=== PATIENT | female | born 2000 | race Caucasian/White ===

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

== ENCOUNTER 2021-01-01 14:30 | Emergency (ER) | payer MEDICAID ==
[2021-01-01 14:56] VITALS: BP 122/76; PULSE 72
--- NOTE | 2021-01-01 15:08 | EDM.PDOCBH ---
ED HPI GENERAL MEDICAL PROBLEM - General Chief Complaint: Behavioral/Psych Stated Complaint: ANXIETY Time Seen by Provider: 01/01/21 14:48 Source of Information: Reports: Patient History Limitations: Reports: No Limitations - History of Present Illness INITIAL COMMENTS - FREE TEXT/NARRATIVE: The patient presents with anxiety. She takes xanax 0.5mg BID for anxiety and she ran out this morning. She cannot get in to see her provider until Sunday. She has some anxiety now and she needs the meds to work. She ran out because she got sick and was vomiting them out. Onset: Gradual Duration: Hour(s): Severity: Moderate Improves with: Reports: None Worsens with: Reports: None Associated Symptoms: Reports: No Other Symptoms Back Pain Score (Numeric/FACES): 5 Headache Pain Score (Numeric/FACES): 3 - Related Data Allergies Allergy/AdvReac Type Severity Reaction Status Date / Time amoxicillin Allergy Severe Rash Verified 01/01/21 14:47 nylon Allergy Severe Hives Verified 01/01/21 14:47 Penicillins Allergy Severe Rash Verified 01/01/21 14:47 Home Meds: Home Meds Venlafaxine HCl [Venlafaxine ER] 150 mg PO DAILY 11/23/18 [History] ALPRAZolam [Xanax] 0.5 mg PO BID 01/01/21 [History] ALPRAZolam [Xanax] 0.5 mg PO BID #20 tablet 01/01/21 [Rx] Amphetamine/Dextroamphetamine [Adderall] 20 mg PO BID 01/01/21 [History] busPIRone [Buspar] 0 mg PO DAILY 01/01/21 [History] Past Medical History - Past Health History Medical/Surgical History: Denies Medical/Surgical History Respiratory History: Reports: Bronchitis, Recurrent Gastrointestinal History: Reports: Other (See Below) 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: , Other (See Below) 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: Psychiatric History: Reports: ADD, Anxiety, Depression, Suicide Attempt Other Psychiatric History: cuttiing self - Past Surgical History Female Surgical History: Reports: Section Social & Family History - Family History Family Medical History: No Pertinent Family History - Tobacco Use Tobacco Use Status *Q: Current Every Day Tobacco User Years of Tobacco use: 7 Packs/Tins Daily: 1 - Caffeine Use Caffeine Use: Reports: Soda, Tea - Recreational Drug Use Recreational Drug Type: Reports: Marijuana/Hashish - Living Situation & Occupation Living situation: Reports: Single Occupation: Unemployed ED ROS GENERAL - Review of Systems Review Of Systems: See Below Constitutional: Reports: No Symptoms HEENT: Reports: No Symptoms Respiratory: Reports: No Symptoms Cardiovascular: Reports: No Symptoms Endocrine: Reports: No Symptoms GI/Abdominal: Reports: No Symptoms : Reports: No Symptoms Musculoskeletal: Reports: No Symptoms ED EXAM, BEHAVIORAL HEALTH - Physical Exam Exam: See Below Exam Limited By: No Limitations General Appearance: Alert, No Apparent Distress Ears: Normal External Exam Nose: Normal Inspection Head: Atraumatic, Normocephalic Neck: Normal Inspection Respiratory/Chest: No Respiratory Distress, Lungs Clear, Normal Breath Sounds Cardiovascular: Regular Rate, Rhythm, No Edema, No Murmur GI/Abdominal: Soft, Non-Tender, No Organomegaly, No Mass Extremities: Normal Inspection Neurological: Alert, No Motor/Sensory Deficits, Oriented x 3 COURSE, BEHAVIORAL HEALTH COMP - Course Vital Signs: Last Vital Signs Temp 97.8 F 01/01/21 14:54 Pulse 72 01/01/21 14:54 Resp 20 01/01/21 14:54 BP 122/76 01/01/21 14:54 Pulse Ox 98 01/01/21 14:54 Departure - Departure Time of Disposition: 15:05 Disposition: Home, Self-Care 01 Condition: Good Clinical Impression: Anxiety - Discharge Information *PRESCRIPTION DRUG MONITORING PROGRAM REVIEWED*: Not Applicable *COPY OF PRESCRIPTION DRUG MONITORING REPORT IN PATIENT RAQUEL: Not Applicable Prescriptions: ALPRAZolam [Xanax] 0.5 mg PO BID #20 tablet Referrals: Isaías Duarte NP [Primary Care Provider] - 1 Week Additional Instructions: Take xanax 0.5mg 2 times per day as prescribed. Follow up with your provider to get a refill. Pleaser return if you are worse. Sepsis Event Note (ED) - Evaluation Sepsis Screening Result: No Definite Risk - Focused Exam Vital Signs: Vital Signs Temp Pulse Resp BP Pulse Ox 01/01/21 14:54 97.8 F 72 20 122/76 98
== END 2021-01-01 15:36 | disposition home or self-care (01) ==
LOC: JD.ED 14:30
DX: F41.9 Anxiety disorder, unspecified (principal); Z72.0 Tobacco use; Z88.0 Allergy status to penicillin; Z91.048 Other nonmedicinal substance allergy status; Z79.899 Other long term (current) drug therapy
CPT/HCPCS: 99283

== ENCOUNTER 2021-06-06 16:17 | Emergency (ER) | payer MEDICAID ==
[2021-06-06 16:58] VITALS: BP 139/117; PULSE 149
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
--- NOTE | 2021-06-06 18:18 | CT ---
Head CT Technique: Multiple axial sections through the brain were obtained. Intravenous contrast was not utilized. Reconstructed coronal and sagittal images were obtained. Comparison: No prior head CT study is available. Findings: Ventricles along with basal cisterns and sulci of the convexities are within normal limits for the patient's age. No abnormal parenchymal densities are seen. No evidence of intracranial hemorrhage is seen. No midline shift or mass-effect is seen. Bone window settings were reviewed. Mucosal thickening is seen within the sphenoid sinuses, maxillary sinuses and ethmoid sinuses. Possible fluid is seen within the maxillary sinuses. Mucosal thickening is also noted within the frontal sinuses. Mastoid sinuses are clear. No acute calvarial abnormality is appreciated. Impression: 1. Sinus findings. Please rule out clinical findings of acute sinusitis as air-fluid levels appear to be present within the maxillary sinuses. 2. No acute intracranial abnormality is appreciated. Diagnostic code #3
== END 2021-06-06 18:12 | disposition left against medical advice (07) ==
LOC: JD.ED 16:17
DX: S06.0X1A Concussion with loss of consciousness of 30 minutes or less, initial encounter (principal); Z88.0 Allergy status to penicillin; Z88.8 Allergy status to other drugs, medicaments and biological substances; Z72.0 Tobacco use; Y04.0XXA Assault by unarmed brawl or fight, initial encounter
CPT/HCPCS: 70450; 70450-26; 99283; 99284-25

== ENCOUNTER 2021-12-20 14:27 | Emergency (ER) | payer MEDICAID ==
[2021-12-20 15:29] VITALS: BP 116/82; PULSE 83
[2021-12-20] MEDS ORDERED: Ondansetron 4 MG/2 ML SDV IVPUSH ONE (16:44)
[2021-12-20] MEDS ORDERED: Sodium Chloride 0.9% 1,000 ML IV ONE (16:44)
[2021-12-20] MEDS ORDERED: Sodium Chloride 0.9% 10 ML Syringe FLUSH PRN (16:45)
[2021-12-20] MEDS ORDERED: HYDROmorphone 0.5 MG/0.5 ML Syringe IVPUSH ONE (17:07)
== END 2021-12-20 18:56 | disposition home or self-care (01) ==
LOC: JD.ED 14:27
DX: O21.9 Vomiting of pregnancy, unspecified (principal); U07.1 COVID-19; Z3A.10 10 weeks gestation of pregnancy; Z88.0 Allergy status to penicillin; Z91.09 Other allergy status, other than to drugs and biological substances; Z79.899 Other long term (current) drug therapy; Z86.16 Personal history of COVID-19
CPT/HCPCS: 36415; 80053; 83735; 85025; 96361; 96374; 96375; 99284; J1170; J2405; J3490; J7030; 99283

== ENCOUNTER 2022-07-11 05:09 | Inpatient (IN) | payer BC, MEDICAID ==
[~2022-07-11 05:09] MED LIST: Sodium Chloride 0.9% 10 ML Syringe FLUSH PRN
[2022-07-11] MEDS ORDERED: Metoclopramide 10 MG/2 ML SDV IVPUSH ONE (06:45)
[2022-07-11] MEDS ORDERED: Citric Acid/Sodium Citrate Solution 30 ML Cup PO ONE (06:45)
[2022-07-11] MEDS: Lactated Ringers 1,000 ML IV SCH ×2 (06:54→06:55)
[2022-07-11] MEDS ORDERED: Ondansetron 4 MG/2 ML SDV ONE (07:04)
[2022-07-11] MEDS ORDERED: Ketorolac 30 MG/ML SDV ONE (07:04)
[2022-07-11] MEDS ORDERED: Lactated Ringers 2,000 ML ONE (07:04)
[2022-07-11] MEDS ORDERED: Morphine PF 1 MG/ML Amp ONE (07:05)
[2022-07-11] MEDS ORDERED: ceFAZolin 2 GM Vial ONE (07:07)
[2022-07-11] MEDS ORDERED: Bupivacaine 0.5% 30 ML SDV ONE (07:13)
[2022-07-11] MEDS ORDERED: Oxytocin/Lactated Ringers 10 UNIT/1,000 ML BAG IV SCH (07:30)
[2022-07-11] MEDS ORDERED: ceFAZolin 2 GM in Sodium Chloride 0.9% 50 ML IV ONE (07:30)
[2022-07-11] MEDS ORDERED: Oxytocin 10 Units/1 ML SDV ONE (07:51)
[2022-07-11] MEDS ORDERED: Phenylephrine HCl In 0.9% NaCl 1 MG/10 ML Vial ONE (07:54)
[2022-07-11] MEDS ORDERED: fentaNYL 100 MCG/2 ML SDV IVPUSH PRN (08:15)
[2022-07-11] MEDS ORDERED: Meperidine 50 MG/ML Vial IVPUSH PRN (08:15)
[2022-07-11] MEDS ORDERED: diphenhydrAMINE 50 MG/ML SDV IVPUSH PRN (08:15)
[2022-07-11] MEDS ORDERED: Ondansetron 4 MG/2 ML SDV IVPUSH PRN (08:15)
[2022-07-11] MEDS ORDERED: Sodium Chloride 0.9% 10 ML Syringe FLUSH SCH (09:00)
[2022-07-11] MEDS ORDERED: Dextrose 5%-Lactated Ringers 1,000 ML IV SCH (09:41)
[2022-07-11] MEDS ORDERED: Acetaminophen/oxyCODONE 325-5 MG Tab PO PRN (09:41)
[2022-07-11] MEDS ORDERED: ePHEDrine 50 MG/ML SDV IVPUSH PRN (09:41)
[2022-07-11] MEDS ORDERED: Naloxone 0.4 MG/ML SDV IVPUSH PRN (09:41)
[2022-07-11] MEDS: diphenhydrAMINE 50 MG/ML SDV IVPUSH PRN ×2 (11:35→19:54)
[2022-07-11] MEDS: Acetaminophen/oxyCODONE 325-5 MG Tab PO PRN ×3 (12:19→23:33)
[2022-07-11] MEDS: Ketorolac 30 MG/ML SDV IVPUSH SCH ×2 (14:15→19:55)
[2022-07-12] MEDS: Acetaminophen/oxyCODONE 325-5 MG Tab PO PRN ×5 (04:51→21:00)
[2022-07-12] MEDS: Ketorolac 30 MG/ML SDV IVPUSH SCH (04:59)
[2022-07-12] MEDS: Docusate Sodium 100 MG Cap PO SCH ×2 (08:46→21:02)
[2022-07-12] MEDS: Ibuprofen 600 MG Tab PO PRN ×2 (13:43→18:58)
[2022-07-13] MEDS: Acetaminophen/oxyCODONE 325-5 MG Tab PO PRN ×3 (03:05→11:29)
[2022-07-13] MEDS: Ibuprofen 600 MG Tab PO PRN ×2 (03:06→10:10)
[2022-07-13] MEDS: Docusate Sodium 100 MG Cap PO SCH (10:16)
[2022-07-13 10:33] VITALS: BP 126/73; PULSE 81
== END 2022-07-13 13:30 | disposition home or self-care (01) | DRG 540 ==
LOC: JD.OB 05:09
PROVIDERS: ADMIT Obstetrics & Gynecology; ATTEND Obstetrics & Gynecology
PROC: 10D00Z1 Extraction of Products of Conception, Low, Open Approach (ICD-10-PCS; principal; 2022-07-11)
PROC: 4A1HXCZ Monitoring of Products of Conception, Cardiac Rate, External Approach (ICD-10-PCS; 2022-07-11)
DX: O34.211 Maternal care for low transverse scar from previous cesarean delivery (principal); O99.344 Other mental disorders complicating childbirth; F41.9 Anxiety disorder, unspecified; F32.A Depression, unspecified; Z3A.38 38 weeks gestation of pregnancy; Z37.0 Single live birth; Z88.1 Allergy status to other antibiotic agents
CPT/HCPCS: 36415; 59025; 80053; 80306; 85025; 86592; 86850; 86900; 86901; A9270-GY; J0690; J1200; J1885; J2274; J2405; J2590; J2765; J3490; J7120; J7121

== ENCOUNTER 2022-10-27 17:11 | Emergency (ER) | payer MEDICAID ==
[2022-10-27 17:30] VITALS: BP 125/83; PULSE 99
[2022-10-27] MEDS ORDERED: Acetaminophen/oxyCODONE 325-5 MG Tab PO ONE (18:05)
== END 2022-10-27 18:59 | disposition home or self-care (01) ==
LOC: JD.ED 17:11
DX: M54.42 Lumbago with sciatica, left side (principal); M54.41 Lumbago with sciatica, right side; I10 Essential (primary) hypertension; F17.210 Nicotine dependence, cigarettes, uncomplicated; Z88.0 Allergy status to penicillin; Z91.048 Other nonmedicinal substance allergy status; Z79.899 Other long term (current) drug therapy; Z91.040 Latex allergy status; Z86.16 Personal history of COVID-19
CPT/HCPCS: 99283; A9270

== ENCOUNTER 2022-11-02 17:55 | Emergency (ER) | payer MEDICAID ==
[2022-11-02] MEDS: predniSONE 20 MG Tab PO ONE (19:21)
[2022-11-02] MEDS: Ketorolac 60 MG/2 ML SDV IM ONE (19:22)
[2022-11-02] MEDS: HYDROmorphone 1 MG/ML Syringe IM ONE (19:24)
[2022-11-02 19:39] VITALS: BP 108/73; PULSE 73
== END 2022-11-02 19:41 | disposition home or self-care (01) ==
LOC: JD.ED 17:55
DX: M54.50 Low back pain, unspecified (principal); I10 Essential (primary) hypertension; K21.9 Gastro-esophageal reflux disease without esophagitis; F17.210 Nicotine dependence, cigarettes, uncomplicated; Z86.16 Personal history of COVID-19; Z91.040 Latex allergy status; Z91.048 Other nonmedicinal substance allergy status; Z88.0 Allergy status to penicillin; Z79.899 Other long term (current) drug therapy
CPT/HCPCS: 96372; 99283; J1170; J1885; J7512

== ENCOUNTER 2023-01-24 14:03 | Emergency (ER) | payer MEDICAID ==
[2023-01-24 14:30] VITALS: BP 119/76
[2023-01-24] MEDS ORDERED: Acetaminophen/HYDROcodone 325-5 MG Tab PO ONE (15:05)
[2023-01-24 16:50] VITALS: PULSE 74
== END 2023-01-24 15:55 | disposition home or self-care (01) ==
LOC: JD.ED 14:03
DX: M54.50 Low back pain, unspecified (principal); I10 Essential (primary) hypertension; K21.9 Gastro-esophageal reflux disease without esophagitis; Z86.16 Personal history of COVID-19; Z88.0 Allergy status to penicillin; Z91.040 Latex allergy status; Z91.048 Other nonmedicinal substance allergy status; Z88.8 Allergy status to other drugs, medicaments and biological substances
CPT/HCPCS: 99283; A9270

== ENCOUNTER 2023-03-13 16:29 | Emergency (ER) | payer MEDICAID ==
[2023-03-13] MEDS ORDERED: LORazepam 1 MG Tab PO ONE (16:48)
[2023-03-13] MEDS ORDERED: Ondansetron 4 MG Tab.DIS PO ONE (17:04)
[2023-03-13 18:42] VITALS: BP 136/88; PULSE 93
== END 2023-03-13 18:45 | disposition home or self-care (01) ==
LOC: JD.ED 16:29
DX: F41.9 Anxiety disorder, unspecified (principal); I10 Essential (primary) hypertension; K21.9 Gastro-esophageal reflux disease without esophagitis; Z86.16 Personal history of COVID-19; Z79.899 Other long term (current) drug therapy; Z88.0 Allergy status to penicillin; Z91.040 Latex allergy status; Z91.048 Other nonmedicinal substance allergy status
CPT/HCPCS: 99283; A9270

== ENCOUNTER 2023-04-22 21:08 | Emergency (ER) | payer MEDICAID ==
[2023-04-22] MEDS ORDERED: Albuterol 6.7 GM Inhaler INH ONE (21:41)
[2023-04-22] MEDS ORDERED: predniSONE 20 MG Tab PO ONE (22:10)
[2023-04-22] MEDS ORDERED: Dextromethorphan HBr 30 MG/5 ML Susp ML PO ONE (22:11)
[2023-04-22 22:36] LABS: CORONAVIRUS COVID-19 NAA NEGATIVE (NEGATIVE); INFLUENZA A NAA NEGATIVE (NEGATIVE); RESPIRATORY SYNCYTIAL VIR NAA NEGATIVE (NEGATIVE)
[2023-04-22] MEDS ORDERED: guaiFENesin 100 MG/5 ML Soln 10 ML UD Cup ONE (22:41)
[2023-04-22] MEDS ORDERED: guaiFENesin/Dextromethorphan 100-10 MG/5 ML Soln 5 ML Cup PO ONE (22:42)
[2023-04-22 22:58] VITALS: BP 118/76; PULSE 78
== END 2023-04-22 22:45 | disposition home or self-care (01) ==
LOC: JD.ED 21:08
DX: J06.9 Acute upper respiratory infection, unspecified (principal); F17.210 Nicotine dependence, cigarettes, uncomplicated; Z20.822 Contact with and (suspected) exposure to COVID-19; Z86.16 Personal history of COVID-19; Z79.899 Other long term (current) drug therapy; Z88.1 Allergy status to other antibiotic agents; Z88.8 Allergy status to other drugs, medicaments and biological substances; Z91.040 Latex allergy status; Z91.048 Other nonmedicinal substance allergy status
CPT/HCPCS: 0241U; 71046; 94640; 99285; A9270; J7512; 99284

== ENCOUNTER 2023-10-04 04:27 | Inpatient (IN) | payer MEDICAID ==
[2023-10-04] MEDS: Lactated Ringers 1,000 ML IV SCH (05:10)
[2023-10-04 05:34] LABS: BASOPHILS ABSOLUTE AUTO 0.1 K/mm3 (0.0-0.2); BASOPHILS PERCENT AUTO 0.5 % (0.0-1.0); EOSINOPHILS ABSOLUTE AUTO 0.1 K/mm3 (0.0-0.4); EOSINOPHILS PERCENT AUTO 1.3 % (0.0-6.0); HEMOGLOBIN 10.9 gm/dl (12.0-16.0); IMMATURE GRAN ABSOLUTE AUTO 0.15 K/mm3 (0.00-0.05); IMMATURE GRAN PERCENT AUTO 1.6 % (0.0-0.4); LYMPHOCYTES ABSOLUTE AUTO 2.4 K/mm3 (1.0-4.8); LYMPHOCYTES PERCENT AUTO 25.7 % (24.0-44.0); MEAN CORPUSCULAR HEMOGLOBIN 26.4 pg (28.0-32.0); MEAN CORPUSCULAR HGB CONC 32.1 g/dl (32.0-36.0); MEAN CORPUSCULAR VOLUME 82.3 fl (83.0-99.0); MEAN PLATELET VOLUME 10.5 fl (9.4-12.3); MONOCYTES ABSOLUTE AUTO 0.8 K/mm3 (0.0-0.8); MONOCYTES PERCENT AUTO 8.2 % (0.0-8.0); NEUTROPHILS ABSOLUTE AUTO 5.9 K/mm3 (1.8-7.7); NEUTROPHILS PERCENT AUTO 62.7 % (41.0-71.0); PLATELET COUNT,PLT 176 K/mm3 (150-400); RED BLOOD CELL COUNT 4.13 M/mm3 (4.10-5.30)
[2023-10-04] MEDS ORDERED: ceFAZolin 2 GM Vial ONE (07:12)
[2023-10-04] MEDS ORDERED: Ondansetron 4 MG/2 ML SDV ONE (07:12)
[2023-10-04] MEDS ORDERED: Ketorolac 30 MG/ML SDV ONE (07:12)
[2023-10-04] MEDS ORDERED: Oxytocin 10 Units/1 ML SDV ONE (07:12)
[2023-10-04] MEDS ORDERED: Morphine PF 10 MG/10 ML SDV ONE (07:13)
[2023-10-04] MEDS: Citric Acid/Sodium Citrate Solution 30 ML Cup PO ONE (07:21)
[2023-10-04] MEDS: Metoclopramide 10 MG/2 ML SDV IVPUSH ONE (07:21)
[2023-10-04] MEDS ORDERED: ePHEDrine 50 MG/ML SDV ONE (08:00)
[2023-10-04] MEDS ORDERED: diphenhydrAMINE 50 MG/ML SDV ONE (08:14)
[2023-10-04] MEDS ORDERED: Esmolol 100 MG/10 ML SDV ONE (08:14)
[2023-10-04] MEDS ORDERED: Lactated Ringers 500 ML ONE (08:29)
[2023-10-04] MEDS ORDERED: Acetaminophen/oxyCODONE 325-5 MG Tab PO PRN (08:37)
[2023-10-04] MEDS ORDERED: Acetaminophen 325 MG Tab PO PRN (08:37)
[2023-10-04] MEDS ORDERED: Naloxone 0.4 MG/ML SDV IVPUSH PRN (08:37)
[2023-10-04] MEDS ORDERED: ePHEDrine 50 MG/ML SDV IVPUSH PRN (08:37)
[2023-10-04] MEDS ORDERED: fentaNYL 100 MCG/2 ML SDV IVPUSH PRN (08:42)
[2023-10-04] MEDS ORDERED: diphenhydrAMINE 50 MG/ML SDV IVPUSH PRN ×2 (08:42→10:00)
[2023-10-04 09:00] LABS: AMPHETAMINES SCREEN, URINE NEGATIVE (CUTOFF=500); BARBITURATE SCREEN,URINE NEGATIVE (CUTOFF=200); BENZODIAZEPINES SCREEN,URINE NEGATIVE (CUTOFF=150); BUPRENORPHINE SCREEN,URINE NEGATIVE (CUTOFF=10); METHADONE SCREEN, URINE NEGATIVE (CUTOFF=200); METHAMPHETAMINES SCREEN, URINE NEGATIVE (CUTOFF=500); OXYCODONE SCREEN,URINE NEGATIVE (CUT0FF=100); THC SCREEN,URINE 20 NG/ML PRESUMPTIVE POSITIVE (CUTOFF=50)
[2023-10-04] MEDS: Bupivacaine 0.5% 30 ML SDV ONE (09:20)
[2023-10-04] MEDS: ceFAZolin 2 GM in Sodium Chloride 0.9% 50 ML IV ONE ×2 (09:44)
[2023-10-04] MEDS: Sodium Chloride 0.9% 10 ML Syringe FLUSH SCH (09:45)
[2023-10-04] MEDS: Dextrose 5%-Lactated Ringers 1,000 ML IV SCH (09:49)
[2023-10-04] MEDS: Acetaminophen/oxyCODONE 325-5 MG Tab PO PRN (09:51)
[2023-10-04] MEDS: Oxytocin/Lactated Ringers 30 UNIT/500 ML BAG IV SCH (10:44)
[2023-10-04] MEDS: Methylergonovine 0.2 MG/1 ML Amp IM ONE (10:55)
[2023-10-04] MEDS: Methylergonovine 0.2 MG/1 ML Amp ONE (10:55)
[2023-10-04 12:38] LABS: BASOPHILS PERCENT AUTO 0.2 % (0.0-1.0); EOSINOPHILS PERCENT AUTO 0.2 % (0.0-6.0); HEMATOCRIT 29.6 % (37.0-47.0); HEMOGLOBIN 9.6 gm/dl (12.0-16.0); IMMATURE GRAN ABSOLUTE AUTO 0.15 K/mm3 (0.00-0.05); IMMATURE GRAN PERCENT AUTO 0.9 % (0.0-0.4); LYMPHOCYTES ABSOLUTE AUTO 1.7 K/mm3 (1.0-4.8); LYMPHOCYTES PERCENT AUTO 9.9 % (24.0-44.0); MEAN CORPUSCULAR HEMOGLOBIN 27.1 pg (28.0-32.0); MEAN CORPUSCULAR HGB CONC 32.4 g/dl (32.0-36.0); MEAN CORPUSCULAR VOLUME 83.6 fl (83.0-99.0); MEAN PLATELET VOLUME 10.5 fl (9.4-12.3); MONOCYTES ABSOLUTE AUTO 0.6 K/mm3 (0.0-0.8); MONOCYTES PERCENT AUTO 3.7 % (0.0-8.0); NEUTROPHILS ABSOLUTE AUTO 14.8 K/mm3 (1.8-7.7); NEUTROPHILS PERCENT AUTO 85.1 % (41.0-71.0); PLATELET COUNT,PLT 147 K/mm3 (150-400); RED BLOOD CELL COUNT 3.54 M/mm3 (4.10-5.30); WHITE BLOOD CELL COUNT,WBC 17.39 K/mm3 (3.9-11.3)
[2023-10-04 12:56] LABS: PROTHROMBIN TIME 10.7 SECONDS (9.7-12.0)
[2023-10-04 12:57] LABS: PTT,PARTIAL THROMBOPLSTIN TIME 27.3 SECONDS (21.7-31.4)
[2023-10-04] MEDS: Ketorolac 30 MG/ML SDV IVPUSH SCH (13:57)
[2023-10-04] MEDS: Ondansetron 4 MG/2 ML SDV IVPUSH PRN (20:21)
[2023-10-04] MEDS: Simethicone 80 MG Tab.Chew PO PRN (22:30)
[2023-10-05 06:08] LABS: BASOPHILS PERCENT AUTO 0.4 % (0.0-1.0); EOSINOPHILS ABSOLUTE AUTO 0.2 K/mm3 (0.0-0.4); EOSINOPHILS PERCENT AUTO 1.4 % (0.0-6.0); HEMATOCRIT 20.7 % (37.0-47.0); IMMATURE GRAN ABSOLUTE AUTO 0.18 K/mm3 (0.00-0.05); IMMATURE GRAN PERCENT AUTO 1.6 % (0.0-0.4); LYMPHOCYTES ABSOLUTE AUTO 2.4 K/mm3 (1.0-4.8); LYMPHOCYTES PERCENT AUTO 21.9 % (24.0-44.0); MEAN CORPUSCULAR HEMOGLOBIN 27.3 pg (28.0-32.0); MEAN CORPUSCULAR HGB CONC 32.4 g/dl (32.0-36.0); MEAN CORPUSCULAR VOLUME 84.5 fl (83.0-99.0); MEAN PLATELET VOLUME 10.2 fl (9.4-12.3); NEUTROPHILS ABSOLUTE AUTO 7.2 K/mm3 (1.8-7.7); NEUTROPHILS PERCENT AUTO 65.7 % (41.0-71.0); PLATELET COUNT,PLT 159 K/mm3 (150-400); RED BLOOD CELL COUNT 2.45 M/mm3 (4.10-5.30); WHITE BLOOD CELL COUNT,WBC 11.01 K/mm3 (3.9-11.3)
[2023-10-05 06:13] LABS: HEMOGLOBIN 6.7 gm/dl (12.0-16.0)
[2023-10-05] MEDS: Ibuprofen 600 MG Tab PO PRN (08:50)
[2023-10-05] MEDS: Sodium Chloride 0.9% 1,000 ML IV SCH (10:00)
[2023-10-05] MEDS: Docusate Sodium 100 MG Cap PO PRN (11:42)
[2023-10-05] MEDS: diphenhydrAMINE 50 MG/ML SDV IV ONE (13:56)
[2023-10-05] MEDS: Acetaminophen 325 MG Tab PO ONE (13:56)
[2023-10-05 18:06] LABS: BASOPHILS ABSOLUTE AUTO 0.1 K/mm3 (0.0-0.2); BASOPHILS PERCENT AUTO 0.4 % (0.0-1.0); EOSINOPHILS ABSOLUTE AUTO 0.2 K/mm3 (0.0-0.4); EOSINOPHILS PERCENT AUTO 1.9 % (0.0-6.0); HEMATOCRIT 27.9 % (37.0-47.0); HEMOGLOBIN 9.2 gm/dl (12.0-16.0); IMMATURE GRAN ABSOLUTE AUTO 0.16 K/mm3 (0.00-0.05); IMMATURE GRAN PERCENT AUTO 1.4 % (0.0-0.4); LYMPHOCYTES ABSOLUTE AUTO 2.7 K/mm3 (1.0-4.8); LYMPHOCYTES PERCENT AUTO 23.3 % (24.0-44.0); MEAN CORPUSCULAR VOLUME 84.8 fl (83.0-99.0); MEAN PLATELET VOLUME 10.1 fl (9.4-12.3); MONOCYTES ABSOLUTE AUTO 1.1 K/mm3 (0.0-0.8); MONOCYTES PERCENT AUTO 9.5 % (0.0-8.0); NEUTROPHILS ABSOLUTE AUTO 7.2 K/mm3 (1.8-7.7); NEUTROPHILS PERCENT AUTO 63.5 % (41.0-71.0); PLATELET COUNT,PLT 179 K/mm3 (150-400); RED BLOOD CELL COUNT 3.29 M/mm3 (4.10-5.30); WHITE BLOOD CELL COUNT,WBC 11.35 K/mm3 (3.9-11.3)
[2023-10-06 09:46] VITALS: PULSE 85
[2023-10-06 16:56] VITALS: BP 138/84
== END 2023-10-06 16:30 | disposition home or self-care (01) | DRG 787 ==
LOC: JD.OB 04:27
PROVIDERS: ADMIT Obstetrics & Gynecology; ATTEND Obstetrics & Gynecology
PROC: 10D00Z1 Extraction of Products of Conception, Low, Open Approach (ICD-10-PCS; principal; 2023-10-04 08:00)
PROC: 30233N1 Transfusion of Nonautologous Red Blood Cells into Peripheral Vein, Percutaneous Approach (ICD-10-PCS; 2023-10-05)
DX: O34.211 Maternal care for low transverse scar from previous cesarean delivery (principal); D62 Acute posthemorrhagic anemia; Z37.0 Single live birth; Z3A.39 39 weeks gestation of pregnancy; O99.344 Other mental disorders complicating childbirth; F32.A Depression, unspecified; F41.9 Anxiety disorder, unspecified; O90.81 Anemia of the puerperium
CPT/HCPCS: 01961; 36415; 36430; 59025; 80306; 85025; 85384; 85610; 85730; 86592; 86850; 86900; 86901; 86922; 94762; A9270-GY; J0665; J0690; J1200; J1885; J2210; J2274; J2405; J2590; J2765; J3490; J7030; J7120; J7121; J7999; P9016

== ENCOUNTER 2023-10-14 02:42 | Day surgery (SDC) | payer MEDICAID ==
[2023-10-14] MEDS ORDERED: Naloxone 0.4 MG/ML SDV IVPUSH PRN ×2 (03:10→04:49)
[2023-10-14] MEDS: Sodium Chloride 0.9% 1,000 ML IV ONE (03:24)
[2023-10-14] MEDS: Ondansetron 4 MG/2 ML SDV IVPUSH ONE (03:25)
[2023-10-14] MEDS: Morphine 4 MG/ML Syringe IVPUSH ONE (03:26)
[2023-10-14] MEDS: Sodium Chloride 0.9% 10 ML Syringe FLUSH PRN ×2 (03:28→04:13)
[2023-10-14 03:37] LABS: BASOPHILS ABSOLUTE AUTO 0.1 K/mm3 (0.0-0.2); BASOPHILS PERCENT AUTO 0.6 % (0.0-1.0); EOSINOPHILS ABSOLUTE AUTO 0.2 K/mm3 (0.0-0.4); EOSINOPHILS PERCENT AUTO 2.1 % (0.0-6.0); HEMATOCRIT 29.2 % (37.0-47.0); HEMOGLOBIN 9.5 gm/dl (12.0-16.0); IMMATURE GRAN ABSOLUTE AUTO 0.64 K/mm3 (0.00-0.05); IMMATURE GRAN PERCENT AUTO 5.8 % (0.0-0.4); LYMPHOCYTES ABSOLUTE AUTO 2.6 K/mm3 (1.0-4.8); LYMPHOCYTES PERCENT AUTO 23.9 % (24.0-44.0); MEAN CORPUSCULAR HEMOGLOBIN 27.6 pg (28.0-32.0); MEAN CORPUSCULAR HGB CONC 32.5 g/dl (32.0-36.0); MEAN CORPUSCULAR VOLUME 84.9 fl (83.0-99.0); MONOCYTES ABSOLUTE AUTO 0.8 K/mm3 (0.0-0.8); MONOCYTES PERCENT AUTO 6.9 % (0.0-8.0); NEUTROPHILS ABSOLUTE AUTO 6.7 K/mm3 (1.8-7.7); NEUTROPHILS PERCENT AUTO 60.7 % (41.0-71.0); NRBC ABSOLUTE 0.02 (0.00-0.02); NRBC PERCENT 0.2 % (0.0-0.2); PLATELET COUNT,PLT 557 K/mm3 (150-400); RED BLOOD CELL COUNT 3.44 M/mm3 (4.10-5.30); WHITE BLOOD CELL COUNT,WBC 11.05 K/mm3 (3.9-11.3)
[2023-10-14 03:53] LABS: APPEARANCE,URINE CLEAR (Clear); BILIRUBIN,URINE NEGATIVE (Negative); COLOR,URINE PINK (Yellow); GLUCOSE,URINE NEGATIVE (Negative); KETONES,URINE TRACE (Negative); LEUKOCYTE ESTERASE,URINE 1+ (Negative); NITRITE,URINE NEGATIVE (Negative); OCCULT BLOOD,URINE 3+ (Negative); PH,URINE 5.5 (5.0-8.0); PROTEIN,URINE 2+ (Negative); UROBILINOGEN,URINE 0.2 (0.2-1.0)
[2023-10-14 04:01] LABS: LACTIC ACID 1.7 mmol/L (0.4-2.0); SLIDE REVIEW ABNORMAL SMEAR
[2023-10-14 04:06] LABS: BACTERIA,URINE MODERATE /hpf (FEW); RBC,URINE TOO NUMEROUS TO CNT /hpf (0-5); SQUAMOUS EPITHELIAL CELLS,UR 0-5 /hpf (0-5); WBC,URINE 30-40 /hpf (0-5)
[2023-10-14 04:07] LABS: MUCUS,URINE NOT SEEN /hpf (FEW)
[2023-10-14 04:08] LABS: A/G RATIO 0.6 (1-2); ALBUMIN 2.3 g/dl (3.4-5.0); ANION GAP 19.8 (5-15); BILIRUBIN TOTAL 0.3 mg/dL (0.2-1.0); BUN/CREATININE RATIO 21.4 (14-18); CREATININE 0.7 mg/dL (0.55-1.02); EST CRCL DRUG DOSING (CG) 118.01 mL/min; PROTEIN TOTAL,TP 6.1 g/dl (6.4-8.2)
[2023-10-14 04:09] LABS: POTASSIUM,K 3.8 mEq/L (3.5-5.1)
[2023-10-14] MEDS: Iopamidol 612 MG/ML 100 ML Bottle IVPUSH ONE (04:12)
[2023-10-14] MEDS: HYDROmorphone 0.5 MG/0.5 ML Syringe IVPUSH ONE (04:58)
[2023-10-14] MEDS: D5 1/2 NS w/ 20 mEq/L KCl 1,000 ML IV SCH (04:58)
[2023-10-14] MEDS: Levofloxacin/Dextrose 5%-Water 750 MG in Premix Bag 1 BAG IV ONE (05:11)
[2023-10-14] MEDS: Lactated Ringers 1,000 ML IV SCH (06:27)
[2023-10-14] MEDS ORDERED: Propofol 200 MG/20 ML SDV ONE (07:21)
[2023-10-14] MEDS ORDERED: fentaNYL 250 MCG/5 ML SDV ONE (07:22)
[2023-10-14] MEDS ORDERED: Midazolam 1 MG/ML 2 ML SDV ONE (07:22)
[2023-10-14] MEDS ORDERED: Dexamethasone 4 MG/ML 5 ML MDV ONE (07:23)
[2023-10-14] MEDS ORDERED: Succinylcholine 200 MG/10 ML MDV ONE (07:23)
[2023-10-14] MEDS ORDERED: Ondansetron 4 MG/2 ML SDV ONE (07:23)
[2023-10-14] MEDS ORDERED: ceFAZolin 2 GM Vial ONE (07:59)
[2023-10-14] MEDS: Doxycycline Monohydrate 100 MG Cap PO ONE (08:05)
[2023-10-14] MEDS ORDERED: fentaNYL 100 MCG/2 ML SDV IVPUSH PRN (08:50)
[2023-10-14] MEDS ORDERED: HYDROmorphone 0.5 MG/0.5 ML Syringe IVPUSH PRN (08:50)
[2023-10-14] MEDS ORDERED: Ondansetron 4 MG/2 ML SDV IVPUSH PRN (08:50)
[2023-10-14] MEDS ORDERED: Lactated Ringers 1,000 ML IV ONE (09:00)
[2023-10-14] MEDS ORDERED: Methylergonovine 0.2 MG/1 ML Amp ONE (09:43)
[2023-10-14] MEDS: Ketorolac 30 MG/ML SDV IVPUSH ONE (10:16)
[2023-10-14] MEDS: oxyCODONE 5 MG Tab PO PRN (10:19)
[2023-10-14 10:52] VITALS: BP 126/70; PULSE 60
== END 2023-10-14 11:04 | disposition home or self-care (01) ==
LOC: JD.ED 02:42 → JD.SDS 06:43
PROVIDERS: ATTEND Obstetrics & Gynecology
DX: N71.9 Inflammatory disease of uterus, unspecified (principal); I10 Essential (primary) hypertension; K21.9 Gastro-esophageal reflux disease without esophagitis; F32.A Depression, unspecified; F41.9 Anxiety disorder, unspecified; D50.0 Iron deficiency anemia secondary to blood loss (chronic); N85.7 Hematometra; Z87.891 Personal history of nicotine dependence; Z79.899 Other long term (current) drug therapy; Z88.0 Allergy status to penicillin
CPT/HCPCS: 36415; 58120; 74177; 80053; 81001; 81003; 83605; 84702; 85025; 86850; 86900; 86901; 87040; 87086; 96365; 96368; 96375; 99285; A9270; J0330; J0690; J1100; J1170; J1885; J1956; J2210; J2250; J2270; J2405; J2704; J3010; J3480; J3490; J7030; J7120; Q9967; 00940; 99284

== ENCOUNTER 2023-10-15 21:13 | Emergency (ER) | payer MEDICAID ==
[2023-10-15] MEDS: oxyCODONE 5 MG Tab PO ONE (21:51)
[2023-10-15 23:09] VITALS: BP 138/92; PULSE 86
== END 2023-10-15 22:26 | disposition home or self-care (01) ==
LOC: JD.ED 21:13
DX: N99.841 Postprocedural hematoma of a genitourinary system organ or structure following other procedure (principal); I10 Essential (primary) hypertension; Z88.0 Allergy status to penicillin; Z91.048 Other nonmedicinal substance allergy status; Z91.040 Latex allergy status; Z88.8 Allergy status to other drugs, medicaments and biological substances; Z79.899 Other long term (current) drug therapy; Z86.16 Personal history of COVID-19
CPT/HCPCS: 99283; A9270

== ENCOUNTER 2023-11-01 20:56 | Emergency (ER) | payer MEDICAID ==
[2023-11-01 21:11] VITALS: BP 152/112; PULSE 110
[2023-11-01 21:24] LABS: APPEARANCE,URINE CLEAR (Clear); BILIRUBIN,URINE NEGATIVE (Negative); COLOR,URINE YELLOW (Yellow); GLUCOSE,URINE NEGATIVE (Negative); KETONES,URINE NEGATIVE (Negative); LEUKOCYTE ESTERASE,URINE TRACE (Negative); NITRITE,URINE NEGATIVE (Negative); OCCULT BLOOD,URINE 2+ (Negative); PROTEIN,URINE NEGATIVE (Negative); UROBILINOGEN,URINE 0.2 (0.2-1.0)
[2023-11-01] MEDS ORDERED: Sodium Chloride 0.9% 10 ML Syringe FLUSH PRN (21:26)
[2023-11-01 21:35] LABS: BACTERIA,URINE FEW /hpf (FEW); MUCUS,URINE MODERATE /hpf (FEW); SQUAMOUS EPITHELIAL CELLS,UR 0-5 /hpf (0-5); WBC,URINE 0-5 /hpf (0-5)
[2023-11-01] MEDS: Sodium Chloride 0.9% 1,000 ML IV SCH (21:45)
[2023-11-01] MEDS: Sodium Chloride 0.9% 10 ML Syringe FLUSH ONE (22:04)
[2023-11-01] MEDS: Iopamidol 612 MG/ML 30 ML SDV IVPUSH ONE (22:04)
[2023-11-01 23:04] LABS: BASOPHILS ABSOLUTE AUTO 0.1 K/mm3 (0.0-0.2); EOSINOPHILS ABSOLUTE AUTO 0.2 K/mm3 (0.0-0.4); EOSINOPHILS PERCENT AUTO 2.5 % (0.0-6.0); HEMATOCRIT 35.9 % (37.0-47.0); HEMOGLOBIN 11.3 gm/dl (12.0-16.0); IMMATURE GRAN ABSOLUTE AUTO 0.02 K/mm3 (0.00-0.05); IMMATURE GRAN PERCENT AUTO 0.3 % (0.0-0.4); LYMPHOCYTES ABSOLUTE AUTO 2.6 K/mm3 (1.0-4.8); LYMPHOCYTES PERCENT AUTO 43.6 % (24.0-44.0); MEAN CORPUSCULAR HEMOGLOBIN 26.8 pg (28.0-32.0); MEAN CORPUSCULAR HGB CONC 31.5 g/dl (32.0-36.0); MEAN CORPUSCULAR VOLUME 85.3 fl (83.0-99.0); MEAN PLATELET VOLUME 9.4 fl (9.4-12.3); MONOCYTES ABSOLUTE AUTO 0.5 K/mm3 (0.0-0.8); MONOCYTES PERCENT AUTO 8.9 % (0.0-8.0); NEUTROPHILS ABSOLUTE AUTO 2.6 K/mm3 (1.8-7.7); NEUTROPHILS PERCENT AUTO 43.7 % (41.0-71.0); PLATELET COUNT,PLT 329 K/mm3 (150-400); RED BLOOD CELL COUNT 4.21 M/mm3 (4.10-5.30); WHITE BLOOD CELL COUNT,WBC 5.98 K/mm3 (3.9-11.3)
[2023-11-01] MEDS: cefTRIAXone 1 GM in Sodium Chloride 0.9% 100 ML IV ONE (23:09)
[2023-11-01 23:25] LABS: A/G RATIO 0.9 (1-2); ALBUMIN 3.4 g/dl (3.4-5.0); ANION GAP 14.8 (5-15); BILIRUBIN TOTAL 0.3 mg/dL (0.2-1.0); BUN/CREATININE RATIO 12.9 (14-18); CALCIUM 8.4 mg/dL (8.5-10.1); CREATININE 0.7 mg/dL (0.55-1.02); EST CRCL DRUG DOSING (CG) 118.01 mL/min; POTASSIUM,K 3.8 mEq/L (3.5-5.1)
[2023-11-01] MEDS: Acetaminophen/HYDROcodone 325-5 MG Tab PO ONE (23:30)
== END 2023-11-02 00:03 | disposition home or self-care (01) ==
LOC: JD.ED 20:56
DX: O86.22 Infection of bladder following delivery (principal); N30.01 Acute cystitis with hematuria; O86.89 Other specified puerperal infections; I10 Essential (primary) hypertension; Z88.0 Allergy status to penicillin; Z91.048 Other nonmedicinal substance allergy status; Z91.040 Latex allergy status; Z79.899 Other long term (current) drug therapy; Z86.16 Personal history of COVID-19
CPT/HCPCS: 36415; 74177; 74177-26; 80053; 81001; 81003; 85025; 86140; 87086; 96365; 99284; 99284-25; A9270-GY; J0696; J3490; J7030; Q9967

== ENCOUNTER 2023-11-04 14:47 | Emergency (ER) | payer MEDICAID ==
[2023-11-04 18:26] LABS: BASOPHILS ABSOLUTE AUTO 0.1 K/mm3 (0.0-0.2); BASOPHILS PERCENT AUTO 0.8 % (0.0-1.0); EOSINOPHILS ABSOLUTE AUTO 0.2 K/mm3 (0.0-0.4); EOSINOPHILS PERCENT AUTO 2.8 % (0.0-6.0); HEMATOCRIT 37.2 % (37.0-47.0); IMMATURE GRAN ABSOLUTE AUTO 0.01 K/mm3 (0.00-0.05); IMMATURE GRAN PERCENT AUTO 0.2 % (0.0-0.4); LYMPHOCYTES ABSOLUTE AUTO 2.7 K/mm3 (1.0-4.8); LYMPHOCYTES PERCENT AUTO 44.8 % (24.0-44.0); MEAN CORPUSCULAR HEMOGLOBIN 27.3 pg (28.0-32.0); MEAN CORPUSCULAR HGB CONC 32.3 g/dl (32.0-36.0); MEAN CORPUSCULAR VOLUME 84.5 fl (83.0-99.0); MEAN PLATELET VOLUME 9.1 fl (9.4-12.3); MONOCYTES ABSOLUTE AUTO 0.5 K/mm3 (0.0-0.8); MONOCYTES PERCENT AUTO 7.8 % (0.0-8.0); NEUTROPHILS ABSOLUTE AUTO 2.6 K/mm3 (1.8-7.7); NEUTROPHILS PERCENT AUTO 43.6 % (41.0-71.0); PLATELET COUNT,PLT 337 K/mm3 (150-400); WHITE BLOOD CELL COUNT,WBC 6.03 K/mm3 (3.9-11.3)
[2023-11-04 18:40] LABS: APPEARANCE,URINE CLEAR (Clear); BILIRUBIN,URINE NEGATIVE (Negative); COLOR,URINE YELLOW (Yellow); GLUCOSE,URINE NEGATIVE (Negative); KETONES,URINE NEGATIVE (Negative); LEUKOCYTE ESTERASE,URINE NEGATIVE (Negative); NITRITE,URINE NEGATIVE (Negative); OCCULT BLOOD,URINE NEGATIVE (Negative); PROTEIN,URINE NEGATIVE (Negative); UROBILINOGEN,URINE 0.2 (0.2-1.0)
[2023-11-04 18:49] LABS: ALBUMIN 3.8 g/dl (3.4-5.0); BILIRUBIN TOTAL 0.2 mg/dL (0.2-1.0); BUN/CREATININE RATIO 12.2 (14-18); CALCIUM 9.2 mg/dL (8.5-10.1); CREATININE 0.9 mg/dL (0.55-1.02); EST CRCL DRUG DOSING (CG) 91.79 mL/min; POTASSIUM,K 4.1 mEq/L (3.5-5.1); PROTEIN TOTAL,TP 7.5 g/dl (6.4-8.2)
[2023-11-04] MEDS: Sodium Chloride 0.9% 10 ML Syringe FLUSH ONE (19:02)
[2023-11-04] MEDS: Iopamidol 612 MG/ML 100 ML Bottle IVPUSH ONE (19:02)
[2023-11-04 19:26] LABS: ANION GAP 12.1 (5-15)
[2023-11-04] MEDS: Metoclopramide 10 MG/2 ML SDV IVPUSH ONE (19:28)
[2023-11-04 19:30] LABS: LACTIC ACID < 0.3 mmol/L (0.4-2.0)
[2023-11-04] MEDS: diphenhydrAMINE 50 MG/ML SDV IVPUSH ONE (19:30)
[2023-11-04] MEDS: Sodium Chloride 0.9% 1,000 ML IV SCH (19:35)
[2023-11-04 20:15] VITALS: BP 102/56; PULSE 62
== END 2023-11-04 20:12 | disposition home or self-care (01) ==
LOC: JD.ED 14:47
DX: S30.0XXA Contusion of lower back and pelvis, initial encounter (principal); Z39.2 Encounter for routine postpartum follow-up; I10 Essential (primary) hypertension; F17.210 Nicotine dependence, cigarettes, uncomplicated; Z88.0 Allergy status to penicillin; Z91.048 Other nonmedicinal substance allergy status; Z91.040 Latex allergy status; Z79.899 Other long term (current) drug therapy
CPT/HCPCS: 36415; 74177; 80053; 81003; 83605; 85025; 86140; 96361; 96374; 96375; 99284; J1200; J2765; J3490; J7030; Q9967

== ENCOUNTER 2023-11-23 20:13 | Emergency (ER) | payer MEDICAID ==
[2023-11-23] MEDS: Ketorolac 30 MG/ML SDV IM ONE (21:02)
[2023-11-23] MEDS: Acetaminophen 325 MG Tab PO ONE (23:30)
[2023-11-23 23:47] VITALS: BP 139/94; PULSE 88
== END 2023-11-23 23:45 | disposition home or self-care (01) ==
LOC: JD.ED 20:13
DX: N83.202 Unspecified ovarian cyst, left side (principal); I10 Essential (primary) hypertension; K21.9 Gastro-esophageal reflux disease without esophagitis; Z88.0 Allergy status to penicillin; Z91.048 Other nonmedicinal substance allergy status; Z91.040 Latex allergy status; Z79.899 Other long term (current) drug therapy
CPT/HCPCS: 76856; 96372; 99284; A9270; J1885

== ENCOUNTER 2024-01-06 10:58 | Emergency (ER) | payer MEDICAID ==
[2024-01-06] MEDS: LORazepam 1 MG Tab PO ONE (11:25)
[2024-01-06] MEDS ORDERED: hydrALAZINE 20 MG/ML SDV IVPUSH ONE (12:02)
[2024-01-06 12:20] LABS: BASOPHILS PERCENT AUTO 0.5 % (0.0-1.0); EOSINOPHILS PERCENT AUTO 0.7 % (0.0-6.0); HEMATOCRIT 40.2 % (37.0-47.0); HEMOGLOBIN 13.2 gm/dl (12.0-16.0); IMMATURE GRAN ABSOLUTE AUTO 0.01 K/mm3 (0.00-0.05); IMMATURE GRAN PERCENT AUTO 0.2 % (0.0-0.4); LYMPHOCYTES ABSOLUTE AUTO 1.3 K/mm3 (1.0-4.8); LYMPHOCYTES PERCENT AUTO 28.3 % (24.0-44.0); MEAN CORPUSCULAR HEMOGLOBIN 27.4 pg (28.0-32.0); MEAN CORPUSCULAR HGB CONC 32.8 g/dl (32.0-36.0); MEAN CORPUSCULAR VOLUME 83.6 fl (83.0-99.0); MEAN PLATELET VOLUME 9.5 fl (9.4-12.3); MONOCYTES ABSOLUTE AUTO 0.5 K/mm3 (0.0-0.8); MONOCYTES PERCENT AUTO 10.4 % (0.0-8.0); NEUTROPHILS ABSOLUTE AUTO 2.6 K/mm3 (1.8-7.7); NEUTROPHILS PERCENT AUTO 59.9 % (41.0-71.0); RED BLOOD CELL COUNT 4.81 M/mm3 (4.10-5.30); WHITE BLOOD CELL COUNT,WBC 4.41 K/mm3 (3.9-11.3)
[2024-01-06 12:21] LABS: PLATELET COUNT,PLT 259 K/mm3 (150-400)
[2024-01-06 12:47] LABS: A/G RATIO 1.2 (1-2); ALBUMIN 4.1 g/dl (3.4-5.0); ANION GAP 16.6 (5-15); BILIRUBIN TOTAL 0.3 mg/dL (0.2-1.0); BUN/CREATININE RATIO 6.3 (14-18); CALCIUM 9.2 mg/dL (8.5-10.1); CREATININE 0.8 mg/dL (0.55-1.02); EST CRCL DRUG DOSING (CG) 103.26 mL/min; MAGNESIUM 1.8 mg/dL (1.8-2.4); POTASSIUM,K 2.6 mEq/L (3.5-5.1); PROTEIN TOTAL,TP 7.6 g/dl (6.4-8.2)
[2024-01-06] MEDS: Potassium Chloride 20 MEQ Tab.ER PO ONE (13:06)
[2024-01-06 13:31] LABS: APPEARANCE,URINE CLEAR (Clear); BILIRUBIN,URINE NEGATIVE (Negative); COLOR,URINE YELLOW (Yellow); GLUCOSE,URINE NEGATIVE (Negative); KETONES,URINE NEGATIVE (Negative); LEUKOCYTE ESTERASE,URINE NEGATIVE (Negative); NITRITE,URINE NEGATIVE (Negative); OCCULT BLOOD,URINE NEGATIVE (Negative); PROTEIN,URINE NEGATIVE (Negative); UROBILINOGEN,URINE 0.2 (0.2-1.0)
[2024-01-06 14:04] VITALS: BP 131/85; PULSE 91
== END 2024-01-06 13:50 | disposition home or self-care (01) ==
LOC: JD.ED 10:58
DX: F41.9 Anxiety disorder, unspecified (principal); E87.6 Hypokalemia; I10 Essential (primary) hypertension; Z88.0 Allergy status to penicillin; Z88.8 Allergy status to other drugs, medicaments and biological substances; Z91.048 Other nonmedicinal substance allergy status; Z91.040 Latex allergy status; Z79.899 Other long term (current) drug therapy; Z86.16 Personal history of COVID-19
CPT/HCPCS: 36415; 80053; 81003; 83735; 84703; 85025; 99284; A9270

== ENCOUNTER 2024-02-25 20:10 | Emergency (ER) | payer MEDICAID ==
[2024-02-25] MEDS: ALPRAZolam 1 MG Tab PO ONE (21:18)
[2024-02-25 23:21] VITALS: BP 123/53; PULSE 88
== END 2024-02-25 23:20 | disposition home or self-care (01) ==
LOC: JD.ED 20:10 → EEVIPCON 20:10 → JD.ED 23:20
DX: M25.531 Pain in right wrist (principal); M25.532 Pain in left wrist; M25.561 Pain in right knee; M25.562 Pain in left knee; F41.9 Anxiety disorder, unspecified; I10 Essential (primary) hypertension; F17.210 Nicotine dependence, cigarettes, uncomplicated; Z88.1 Allergy status to other antibiotic agents; Z88.0 Allergy status to penicillin; Z91.040 Latex allergy status; Z91.048 Other nonmedicinal substance allergy status; Z79.899 Other long term (current) drug therapy
CPT/HCPCS: 73110; 73120; 73562; 99284; A9270; 99283

== ENCOUNTER 2024-03-26 12:58 | Emergency (ER) | payer MEDICAID ==
[2024-03-26 13:24] VITALS: BP 130/79; PULSE 116
[2024-03-26] MEDS: busPIRone 5 MG Tab PO ONE (14:44)
[2024-03-26] MEDS: ALPRAZolam 0.25 MG Tab PO ONE (14:44)
[2024-03-26] MEDS: Venlafaxine 37.5 MG Cap.ER PO ONE (15:23)
== END 2024-03-26 15:25 | disposition home or self-care (01) ==
LOC: JD.ED 12:58
DX: Z76.0 Encounter for issue of repeat prescription (principal); I10 Essential (primary) hypertension; F17.210 Nicotine dependence, cigarettes, uncomplicated; Z88.0 Allergy status to penicillin; Z91.040 Latex allergy status; Z91.048 Other nonmedicinal substance allergy status; Z79.899 Other long term (current) drug therapy
CPT/HCPCS: 99283; A9270

== ENCOUNTER 2024-04-14 15:38 | Emergency (ER) | payer MEDICAID ==
[2024-04-14 15:46] VITALS: BP 139/85; PULSE 108
[2024-04-14] MEDS: HYDROmorphone 0.5 MG/0.5 ML Syringe IVPUSH ONE (16:34)
[2024-04-14] MEDS: Sodium Chloride 0.9% 10 ML Syringe FLUSH PRN (16:34)
[2024-04-14] MEDS: Ondansetron 4 MG/2 ML SDV IVPUSH ONE (16:34)
[2024-04-14 16:42] LABS: BASOPHILS ABSOLUTE AUTO 0.1 K/mm3 (0.0-0.2); BASOPHILS PERCENT AUTO 0.9 % (0.0-1.0); EOSINOPHILS ABSOLUTE AUTO 0.1 K/mm3 (0.0-0.4); EOSINOPHILS PERCENT AUTO 1.2 % (0.0-6.0); HEMATOCRIT 39.6 % (37.0-47.0); HEMOGLOBIN 13.4 gm/dl (12.0-16.0); IMMATURE GRAN ABSOLUTE AUTO 0.01 K/mm3 (0.00-0.05); IMMATURE GRAN PERCENT AUTO 0.2 % (0.0-0.4); LYMPHOCYTES ABSOLUTE AUTO 1.9 K/mm3 (1.0-4.8); LYMPHOCYTES PERCENT AUTO 28.2 % (24.0-44.0); MEAN CORPUSCULAR HEMOGLOBIN 29.3 pg (28.0-32.0); MEAN CORPUSCULAR HGB CONC 33.8 g/dl (32.0-36.0); MEAN CORPUSCULAR VOLUME 86.5 fl (83.0-99.0); MEAN PLATELET VOLUME 10.1 fl (9.4-12.3); MONOCYTES ABSOLUTE AUTO 0.5 K/mm3 (0.0-0.8); MONOCYTES PERCENT AUTO 7.9 % (0.0-8.0); NEUTROPHILS ABSOLUTE AUTO 4.1 K/mm3 (1.8-7.7); NEUTROPHILS PERCENT AUTO 61.6 % (41.0-71.0); PLATELET COUNT,PLT 246 K/mm3 (150-400); RED BLOOD CELL COUNT 4.58 M/mm3 (4.10-5.30); WHITE BLOOD CELL COUNT,WBC 6.59 K/mm3 (3.9-11.3)
[2024-04-14 16:51] LABS: A/G RATIO 1.2 (1-2); ALBUMIN 3.8 g/dl (3.4-5.0); BILIRUBIN TOTAL 0.2 mg/dL (0.2-1.0); C-REACTIVE PROTEIN 0.14 mg/dL (<0.30); CALCIUM 8.8 mg/dL (8.5-10.1); CREATININE 0.7 mg/dL (0.55-1.02); EST CRCL DRUG DOSING (CG) 117.01 mL/min
[2024-04-14 16:58] LABS: APPEARANCE,URINE CLEAR (Clear); BILIRUBIN,URINE NEGATIVE (Negative); COLOR,URINE YELLOW (Yellow); GLUCOSE,URINE NEGATIVE (Negative); KETONES,URINE NEGATIVE (Negative); LEUKOCYTE ESTERASE,URINE 1+ (Negative); NITRITE,URINE NEGATIVE (Negative); OCCULT BLOOD,URINE NEGATIVE (Negative); PROTEIN,URINE NEGATIVE (Negative); UROBILINOGEN,URINE 0.2 (0.2-1.0)
[2024-04-14 17:14] LABS: BACTERIA,URINE FEW /hpf (FEW); MUCUS,URINE FEW /hpf (FEW); RBC,URINE 0-5 /hpf (0-5)
[2024-04-14] MEDS: Iopamidol 612 MG/ML 100 ML Bottle IVPUSH ONE (17:37)
[2024-04-14] MEDS ORDERED: HYDROmorphone 0.5 MG/0.5 ML Syringe IVPUSH ONE (19:11)
== END 2024-04-14 19:33 | disposition home or self-care (01) ==
LOC: EEVIPCON 15:38 → JD.ED 15:38
DX: N83.02 Follicular cyst of left ovary (principal); N94.89 Other specified conditions associated with female genital organs and menstrual cycle; Z79.899 Other long term (current) drug therapy; Z88.0 Allergy status to penicillin; Z91.048 Other nonmedicinal substance allergy status; Z91.040 Latex allergy status
CPT/HCPCS: 36415; 74177; 74177-26; 80053; 81001; 83690; 84703; 85025; 86140; 96374; 96375; 99284-25; J1171; J2405; J3490; Q9967

== ENCOUNTER 2024-04-16 13:05 | Emergency (ER) | payer MEDICAID | END 2024-04-16 13:34 | disposition left against medical advice (07) | LOC: JD.ED 13:05 | DX: Z53.21 Procedure and treatment not carried out due to patient leaving prior to being seen by health care provider (principal) ==

== ENCOUNTER 2024-04-17 03:33 | Emergency (ER) | payer MEDICAID ==
[2024-04-17] MEDS: Ondansetron 4 MG Tab.DIS PO ONE (04:05)
[2024-04-17] MEDS: Lidocaine 2% 11 ML Jelly Filled Syringe MUCMEM ONE (04:05)
[2024-04-17] MEDS: Magnesium Citrate Solution 296 ML Bottle PO ONE (04:05)
[2024-04-17 05:44] VITALS: BP 125/73; PULSE 71
== END 2024-04-17 05:43 | disposition home or self-care (01) ==
LOC: JD.ED 03:33
DX: K59.01 Slow transit constipation (principal); I10 Essential (primary) hypertension; Z79.899 Other long term (current) drug therapy; Z88.0 Allergy status to penicillin; Z91.048 Other nonmedicinal substance allergy status; Z91.040 Latex allergy status
CPT/HCPCS: 99283; A9270

== ENCOUNTER 2024-05-09 03:24 | Emergency (ER) | payer MEDICAID ==
[2024-05-09 03:40] VITALS: BP 126/87; PULSE 126
== END 2024-05-09 04:55 | disposition home or self-care (01) ==
LOC: JD.ED 03:24
DX: T75.4XXA Electrocution, initial encounter (principal); S60.511A Abrasion of right hand, initial encounter; I10 Essential (primary) hypertension; F17.210 Nicotine dependence, cigarettes, uncomplicated; Z86.16 Personal history of COVID-19; Z88.0 Allergy status to penicillin; Z88.8 Allergy status to other drugs, medicaments and biological substances; Z91.040 Latex allergy status; Z91.048 Other nonmedicinal substance allergy status; Z79.899 Other long term (current) drug therapy; W86.8XXA Exposure to other electric current, initial encounter
CPT/HCPCS: 73552-26-RT; 73552-RT; 99283